=== PATIENT | male | born 1965 ===

== ENCOUNTER → 2021-10-05 | Outpatient (CLI) | payer OTHER | END | disposition home or self-care (01) | LOC: Rad HDHVI 07:58 | PROVIDERS: ATTEND Internal Medicine Cardiovascular Disease | DX: I07.1 Rheumatic tricuspid insufficiency (principal) | CPT/HCPCS: 93306 ==

== ENCOUNTER → 2021-10-12 | Outpatient (CLI) | payer OTHER ==
[~2021-10-12] VITALS: Ht 167.6 cm; Wt 70.3 kg
== END | disposition home or self-care (01) ==
LOC: Rad HDHVI 08:24
PROVIDERS: ATTEND Internal Medicine Cardiovascular Disease
DX: I10 Essential (primary) hypertension (principal); Z82.49 Family history of ischemic heart disease and other diseases of the circulatory system
CPT/HCPCS: 78452; 93017; 96374; A9500

== ENCOUNTER 2025-08-10 09:01 | Outpatient (CLI) | payer OTHER ==
[~2025-08-10] VITALS: Ht 170.2 cm; Wt 81.2 kg
--- NOTE | 2025-08-21 13:51 | DVHSR ---
APPROVED REPORT Exam: Nuclear Stress Test Indication: Screening for CAD Ht: 5 ft 7 in Wt: 179 lbs BSA: 1.93 m2 HR: 48 bpm BP: 116/74 mmHg BMI: 28.03 Rhythm: marked sinus bradycardia Medical History Medical History: HTN, Hypercholesterolemia, Palpitations Medications: Magnesium glycinate, Zyrtec, MVI, Vit D3, Turmeric/[place], L- Arginine, Collagen complex, Milk thistle, Total beets, Lions hanna, Creatine monohydrate, Protein Cardiac Risk Factors: Family Hx of CAD Stress Test Details Stress Test: Exercise stress testing was performed using a Aaron protocol. HR Resting HR: 48 bpm Max Heart Rate (APMHR): 161.389988 bpm Max HR Achieved: 150 bpm Target HR (85% APMHR): 136.221417 bpm % of APMHR: 93.17 Recovery HR: 67 bpm HR response to stress: Normal HR response to stress BP Resting BP: 116/74 mmHg Max BP: 203/88 mmHg Recovery BP: 133/66 mmHg BP response to stress: exaggerated response ECG Resting ECG: Sinus Bradycardia Stress ECG: Sinus Tachycardia Arrhythmia: PACs Recovery ECG: Sinus Rhythm Clinical Reason for Termination: target HR achieved Stress Symptoms: none Exercise duration: 8 min 01 sec Exercise capacity: 10.10 METs Stress ECG Conclusion NON ISCHEMIC CLINICAL RESPONSE NON ISCHEMIC ECG RESPONSE NON ISCHEMIC CARDIOLITE PERFUSION SCAN EF >55% NM EXAM: Myocardial Perfusion REST/STRESS Imaging Protocol: Rest Tc-99m/Stress Tc-99m 1 day Resting Data Rest SPECT myocardial perfusion imaging was performed in supine position 30 minutes following the intravenous injection of 10.98 mCi of Tc-99m Sestamibi. Time of rest injection: 932 Date: 08/10/2025 Time of rest imagin Date: 08/10/2025 Administration Route: IV Administration Site: Left AC Exercise Stress At peak stress, the patient was injected intravenously with 32.9 mCi of Tc-99m Sestamibi. Time of stress injection: 1019 Date: 08/10/2025 Time of stress imagin Date: 08/10/2025 Administration Route: IV Administration Site: Left AC Heart Rate at time of stress injection: 150 bpm. Patient continued to exercise for 1 minute(s). Gated Stress SPECT was performed 15 minutes after stress injection. The images were gated to evaluate regional wall motion and calculate left ventricular ejection fraction. Comments Cardiolite injection at 6 minutes, 53 seconds into test. Nuclear Conclusion NON ISCHEMIC CLINICAL RESPONSE NON ISCHEMIC ECG RESPONSE NON ISCHEMIC CARDIOLITE PERFUSION SCAN EF >55%
== END 2025-08-10 17:00 | disposition home or self-care (01) ==
LOC: Rad HDHVI 09:01
PROVIDERS: ATTEND Internal Medicine Cardiovascular Disease
DX: I49.1 Atrial premature depolarization (principal); I77.810 Thoracic aortic ectasia; R00.0 Tachycardia, unspecified; R00.1 Bradycardia, unspecified; Z13.6 Encounter for screening for cardiovascular disorders; I10 Essential (primary) hypertension; E78.00 Pure hypercholesterolemia, unspecified; R00.2 Palpitations; Z82.49 Family history of ischemic heart disease and other diseases of the circulatory system
CPT/HCPCS: 78452; 93017; 93306; A9500; 96374